=== PATIENT | male | born 1960 | race Caucasian/White ===

== ENCOUNTER → 2017-05-24 | Outpatient (CLI) | payer BC ==
[~2017-05-24] MED LIST: AMIO200T4 PO; Co Q-10 PO; FRS/40 PO; Humalog SC; Lantus SC; Lisinopril PO; MAGN400T6 PO; POTASSIUM CLORIDE PO; SPIR25TA PO; Vitamin D PO; levothyroxine PO
[2017-05-24 14:58] LABS: HEMOGLOBIN A1C 8.2 % (4.5-5.6)
== END | disposition home or self-care (01) ==
LOC: C.LAB1850 12:45
PROVIDERS: ATTEND Internal Medicine Endocrinology, Diabetes & Metabolism
DX: E11.9 Type 2 diabetes mellitus without complications (principal)